=== PATIENT | male | born 1940 | race Caucasian/White ===

== ENCOUNTER → 2018-05-07 13:50 | Outpatient (BNVA) | payer MEDICARE, SELFPAY | PROVIDERS: PCP Nurse Practitioner Adult Health; Visit Provider Nurse Practitioner Adult Health | DX: G56.02 Carpal tunnel syndrome, left upper limb (principal); G62.9 Polyneuropathy, unspecified | CPT/HCPCS: 95910; 99203 ==

== ENCOUNTER → 2018-05-08 07:41 | Outpatient (BNVA) | payer MEDICARE, SELFPAY | PROVIDERS: PCP Nurse Practitioner Adult Health; Visit Provider Psychiatry & Neurology Neurology | DX: G56.01 Carpal tunnel syndrome, right upper limb (principal) | CPT/HCPCS: 95909 ==

== ENCOUNTER 2020-12-12 09:23 | Outpatient (CLI) | payer MEDICARE, SELFPAY ==
[2020-12-12 10:07] LABS: Abs Immature Grans 0.03 10^3/uL (0.0-0.06); Absolute Basophil Count 0.03 10^3/uL (0.0-0.2); Absolute Eosinophil Count 0.06 10^3/uL (0.0-0.7); Absolute Lymphocyte Count 1.24 10^3/uL (1.2-3.4); Absolute Monocyte Count 0.85 10^3/uL (0.1-0.8); Basophils % 0.4; Eosinophils % 0.7; HCT 47.4 % (40.0-50.0); HGB 15.4 g/dL (13.5-17.5); Immature Grans % 0.4; Lymphocytes % 14.6; MCH 31.6 pg (27.0-33.0); MCHC 32.5 % (32.0-36.0); MCV 97.1 fL (80-95); MPV 10.5 fL (8.0-11.0); Neutrophils % 73.9; Nucleated RBC 0 %; Platelet Count 113 10^3/uL (130-400); RBC 4.88 10^6/uL (4.36-5.78); RDW 14.5 % (11.8-14.1); RDW-SD 52.2 fL; WBC 8.51 10^3/uL (4.4-10.8)
[2020-12-12 10:26] LABS: ALT 24 U/L (16-63); AST 19 U/L (15-37); Albumin 3.6 g/dL (3.4-5.0); Alkaline Phosphatase 50 U/L (46-116); Anion Gap 6.1 mmol/L (3-11); BUN 20 mg/dL (7-18); Bilirubin, Total 0.8 mg/dL (0.2-1.0); CO2 31.9 mmol/L (21.0-32.0); CREATININE 1.3 mg/dL (0.70-1.30); Calcium 9.1 mg/dL (8.5-10.1); Chloride 101 mmol/L (98-107); Estimated GFR 53.39 (mL/min/1.73m2); FREE T4 0.99 ng/dL (0.76-1.46); Glucose 156 mg/dL (74-106); Potassium 4.1 mmol/L (3.5-5.1); Sodium 139 mmol/L (136-145); Total Protein 6.7 g/dL (6.4-8.2)
[2020-12-12 17:27] LABS: CEA 1.5 ng/mL (See Note)
== END 2020-12-12 09:24 | disposition home or self-care (01) ==
PROVIDERS: PCP Nurse Practitioner Adult Health; Visit Provider Internal Medicine Medical Oncology
DX: C15.9 Malignant neoplasm of esophagus, unspecified (principal); Z79.899 Other long term (current) drug therapy
CPT/HCPCS: 36415; 80053; 82378; 84439; 84443; 85025

== ENCOUNTER 2020-12-26 10:51 | Outpatient (CLI) | payer MEDICARE, SELFPAY ==
[2020-12-26 11:27] LABS: Abs Immature Grans 0.03 10^3/uL (0.0-0.06); Absolute Basophil Count 0.03 10^3/uL (0.0-0.2); Absolute Eosinophil Count 0.08 10^3/uL (0.0-0.7); Absolute Lymphocyte Count 1.53 10^3/uL (1.2-3.4); Basophils % 0.3; Eosinophils % 0.9; HCT 47.8 % (40.0-50.0); HGB 15.9 g/dL (13.5-17.5); Immature Grans % 0.3; Lymphocytes % 16.9; MCHC 33.3 % (32.0-36.0); MCV 96.2 fL (80-95); Monocytes % 8.8; Neutrophils % 72.8; Nucleated RBC 0 %; Platelet Count 116 10^3/uL (130-400); RBC 4.97 10^6/uL (4.36-5.78); RDW 14.3 % (11.8-14.1); RDW-SD 50.4 fL; WBC 9.07 10^3/uL (4.4-10.8)
[2020-12-26 11:49] LABS: ALT 28 U/L (16-63); AST 18 U/L (15-37); Albumin 3.6 g/dL (3.4-5.0); Alkaline Phosphatase 46 U/L (46-116); Anion Gap 7.7 mmol/L (3-11); BUN 32 mg/dL (7-18); Bilirubin, Total 0.9 mg/dL (0.2-1.0); CO2 30.3 mmol/L (21.0-32.0); CREATININE 1.6 mg/dL (0.70-1.30); Calcium 9.4 mg/dL (8.5-10.1); Chloride 99 mmol/L (98-107); Estimated GFR 42.01 (mL/min/1.73m2); FREE T4 1.09 ng/dL (0.76-1.46); Glucose 194 mg/dL (74-106); Potassium 3.9 mmol/L (3.5-5.1); Sodium 137 mmol/L (136-145); TSH 0.53 uIU/mL (0.36-3.74); Total Protein 6.7 g/dL (6.4-8.2)
[2020-12-26 22:08] LABS: CEA 1.9 ng/mL (See Note)
== END 2020-12-26 10:52 | disposition home or self-care (01) ==
LOC: LBO 10:52
PROVIDERS: PCP Nurse Practitioner Adult Health; Visit Provider Internal Medicine Medical Oncology
DX: C15.9 Malignant neoplasm of esophagus, unspecified (principal); Z79.899 Other long term (current) drug therapy
CPT/HCPCS: 36415; 80053; 82378; 84439; 84443; 85025

== ENCOUNTER 2020-12-31 13:41 | Inpatient (IN) | payer MEDICARE, SELFPAY ==
[2020-12-31] VITALS (60 sets, daily range): BP systolic 84–122; BP diastolic 50–73; PULSE 66–96; RESP 16–18; TEMP 36.6–37.1; O2SAT 84–97
--- NOTE | 2020-12-31 | DI.CT_ITS ---
Exam(s) CT CHEST PE CTA EXAM: CT CHEST PE CTA CLINICAL HISTORY: concern for acute PE. TECHNIQUE: Imaging Protocol: CT angiography of the chest was performed using pulmonary embolus andres col. Multi planar reconstructions were performed. CONTRAST MATERIAL: Intravenous: Omnipaque 350 Contrast volume: 100 cc COMPARISON: CR,XR XR CHEST 1V IN DI DEPT from 12/31/2020 FINDINGS: CHEST: PULMONARY ARTERIES: There are no intraluminal filling defects to suggest acute pulmonary emboli. LUNGS: There are no infiltrates nor evidence of pulmonary infarction.. There are no pleural effusions . MEDIASTINUM: There is no hilar nor mediastinal adenopathy. Visualized thyroid unremarkable. CARDIAC: There is cardiomegaly. Coronary artery calcification.No pericardial effusion. The caliber of the thoracic aorta is within normal limits. There is no significant shift of the interventricular septum. PARTIALLY VISUALIZED UPPERMOST ABDOMEN: Some reflux of contrast is noted into the intrahepatic IVC an d veins. OSSEOUS: No significant osseous lesions.Bilateral shoulder prostheses are noted.. IMPRESSION: 1. No evidence of acute pulmonary emboli. No evidence of pulmonary infarction.No pleural effusions. 2. Mild cardiomegaly. No pericardial effusion 3. Bilateral shoulder prostheses are noted. RADIATION DOSE DELIVERED: 574.46mGy.cm Total DLP DATA REPOSITORY: All CT scans at this facility are submitted to the National Radiology Data Registry (NRDR) Dose Index Registry (DIR) with the [employer] (ACR). RADIATION OPTIMIZATION: All CT scans at this facility use at least one of these dose optimization te chniques: automated exposure control; mA and/or kV adjustment per patient size (includes targeted exa ms where dose is matched to clinical indication); or iterative reconstruction.
--- NOTE | 2020-12-31 13:49 | ED.GENADUL_ITS ---
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 Current chemotherapy is meant to be palliative however after speaking with patient, his family, he is a full code. Between sometime last night and this morning there has been a change in his overall mental status. He typically lives at home alone, ambulates with a walker, but is now overly confused. Patient has no acute concerns or complaints. Given his age with multiple comorbidities, will obtain a cardiac work-up, head CT, TSH, chest x-ray, give IV fluid maintenance therapy of 125 an hour, and urinalysis. Will obtain ammonia given his mets to the liver. We will also obtain a Covid swab as I feel as though there is a strong chance he may be admitted. Patient is fully vaccinated against Covid. Patient's xnblmldz-ey-szj is as well who was initially in the room however she left. Now the patient is trying to leave the exam room. The household cook was involved, the patient son who has had 1 Covid vaccine will be allowed to enter the building and stay with his father. Unfortunately right now we do not a CPSO available. Initial laboratory values reveal a white blood cell count of 8.03, hemoglobin 14.3, platelet count 124. INR 1.1. Sodium 139 potassium 3.6 carbon dioxide 33.6 BUN 27, creatinine 1.6, GFR 42.01, glucose 113, magnesium 2.4, total bili 1.1, alk phosphatase 40. TSH 0.49. Ammonia, troponin, urinalysis, imaging all pending. Troponin 0.13. Patient continues to deny any chest pain. He will be given a full dose aspirin. Ammonia 41. Urinalysis negative for signs of infection. Awaiting chest x-ray and CT imaging Medical Records Medical records reviewed: Yes I reviewed the patient's medical records. ECG Data Attestation: I personally reviewed and interpreted this ECG (s) as follows: Interpretation: Please see official report by Dr. Hough. Sinus rhythm, v entricular rate of 80. Nonspecific ST changes. No STEMI. Motion artifact <CIELO Acharya - Last Filed: 12/31/20 23:19> Case signed out to me from Julian German PA-C pending repeat troponin and EKG, upon reassessment, I suspect the patient has had a TIA, he has completely resolved mentation at this time and is alert and oriented at time of my evaluation at 16[address] Patient has a negative CT head for acute pathology, took asa today per son He did have an elevated troponin, 0.13 with a negative EKG for acute ischemia or injury, he denies any chest pain or shortness of breath, nausea He has been completely asymptomatic at baseline from 1030 He does have a significant cardiac history and last stent was placed several years ago Again patient has not had chest pain or shortness of breath, he has a normal- appearing EKG for him He had a repeat troponin that went from .13, .16, no significant change Case was discussed with Dr. Trejo, hospitalist and she prefers. Discussed the case with cardiology at [facility] prior to admission for likely TIA Pending cardiology call at [address] Smith, cardiology her states that she did recommend baby aspirin and statin for this patient but would not intervene from a cardiology standpoint given patient's comorbidities and prior evaluation This was relayed to Dr. Trejo, admitting hospitalist and she is agreeable to admitting patient at this time Differential Diagnosis Differential Diagnosis: TIA, CVA, SAH, DE Medical Records Medical records reviewed: Yes I reviewed the patient's medical records. Lab Data Lab results reviewed: Yes I reviewed the patient's lab results. HPI <CIELO Sargent - Last Filed: 01/01/21 08:20> General Mode of arrival: wheelchair . Date/Time Provider Initiated Documentation: 12/31/20 13:49 . Limitations to Documentation: no limitations . Information obtained by: patient and family . HPI Narrative: This is a 80-year-old gentleman, past medical history of coronary artery disease, heparin- induced thrombocytopenia, CKD, hypertension, Fung's esophagitis, chronic back pain, heart failure, former smoker, aortic stenosis, with recent diagnosis of what I am told by his kcrygaix-uc-xdl is stage IV liver cancer. Upon reviewing additional medical records it appears as though this is actually esophagus [facility] emergency department er. Patient has been on oral chemo Xeloda for approximately 2-1/2 weeks. He received a single IV injection of chemotherapy approximately 3 weeks ago, Oxalipltin. Apparently the patient lives at home alone, uses a walker at baseline to ambulate family with him last night and they report he was at baseline. This morning they believe that he was confused, using his remote control as a telephone. Exact time of altered mental status unknown. He apparently was incontinent of urine, they brought him to [facility] this morning where he had a urinalysis that was unremarkable and he was subsequently discharged. I was able to confirm this via the telephone from an RN, Estefania, who works in the ER at [facility]. I spoke with the patient, his nkltnoum-rc-xro, and his son Yousif on the phone. At this time he is a full code. Denies recent illness or trauma. The patient is pleasantly confused, has no acute concerns or complaints. Related Data Home Medications Medication Instructions Recorded Confirmed acetaminophen [Tylenol Extra 2,000 mg PO BID tab-cap 04/14/18 05/07/18 Strength] allopurinol 300 mg PO DAILY tab-cap 04/14/18 12/31/20 aspirin 81 mg PO DAILY tab-cap 04/14/18 12/31/20 atenolol 12.5 mg PO DAILY tab-cap 04/14/18 12/31/20 cholecalciferol (vitamin D3) 2,000 unit PO DAILY 04/14/18 05/07/18 [Vitamin D3] cinnamon bark 1,000 mg PO DAILY 04/14/18 12/31/20 gabapentin 300 mg PO TID tab-cap 04/14/18 12/31/20 glipizide 5 mg PO DAILY tab-cap 04/14/18 05/07/18 omfgffvbgkky-zheq-qzxer acid 1 tab-cap PO DAILY tab-cap 04/14/18 12/31/20 [Centrum Complete Multivit Tab] omeprazole 40 mg PO DAILY tab-cap 04/14/18 12/31/20 rosuvastatin [Crestor] 40 mg PO DAILY tab-cap 04/14/18 12/31/20 betamethasone acet,sod phos 6 mg 12/31/20 [Celestone Soluspan] capecitabine 1,500 mg PO DAILY AM 12/31/20 12/31/20 ezetimibe 10 mg PO DAILY 12/31/20 12/31/20 furosemide 20 mg PO DAILY 12/31/20 12/31/20 ketoconazole applic TOPICAL 12/31/20 meclizine 25 mg PO DAILY AM PRN 12/31/20 12/31/20 hxewvagnodvz-zxmd-qqele acid 1 tab PO DAILY 12/31/20 12/31/20 [Centrum Complete] prochlorperazine maleate 10 mg PO QID PRN 12/31/20 12/31/20 Allergies Allergy/AdvReac Type Severity Reaction Status Date / Time heparin Allergy Unknown Unverified 12/31/20 14:10 simvastatin [From Zocor] Allergy Unknown Unverified 12/31/20 14:10 diclofenac AdvReac Mild DIZZINESS Unverified 12/31/20 14:45 Review of Systems <CIELO Sargent - Last Filed: 01/01/21 08:20> Constitutional Constitutional: Denies fatigue, Denies fever(s) and Denies headache(s) Eyes Eyes: Denies change in vision ENT Ears, Nose, Mouth, and Throat: Denies headache(s) Cardiovascular Cardiovascular: Denies chest pain and Denies dyspnea Respiratory Respiratory: Denies cough and Denies dyspnea Gastrointestinal Gastrointestinal: Denies abdominal pain, Denies nausea and Denies vomiting Genitourinary Genitourinary: Denies dysuria Musculoskeletal Musculoskeletal: Denies back pain Integumentary/Breasts Skin/Breast: Denies rash Neurologic Neurologic: Denies headache(s) Endocrine Endocrine: Denies fatigue Hematologic/Lymphatic Hematologic/Lymphatic: Denies easy bleeding and Denies easy bruising PFSH <CIELO Sargent - Last Filed: 01/01/21 08:20> Medical History (Updated 01/01/21 @ 01:49 by Leonarda Trejo MD) (HFpEF) heart failure with preserved ejection fraction Aortic stenosis, mild Barretts esophagus Carpal tunnel syndrome, right Chronic back pain CKD (chronic kidney disease) stage 3, GFR 30-59 ml/min Coronary artery disease Degenerative spondylolisthesis DJD of both shoulders Esophageal cancer, 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, on oxaliplatin and capecitabine, last treatment 12/20/20 History of DE (myocardial infarction) History of TIA (transient ischemic attack) HIT (heparin-induced thrombocytopenia) Hyperlipidemia Hypertension Lumbar radiculopathy TAYLOR (nonalcoholic steatohepatitis) Nephrolithiasis Obesity Osteoarthritis Peripheral neuropathy Type 2 diabetes mellitus Surgical History (Updated 01/01/21 @ 00:52 by Leonarda Trejo MD) History of esophageal surgery History of heart artery stent History of left knee replacement History of replacement of both shoulder joints History of spinal fusion Family History Brother Prostate cancer Three brothers all Sister Colon cancer Liver cancer Father Lung cancer Other Diabetes Social History Smoking/Tobacco Use Status: Current every day Smokeless tobacco user: chewing tobacco Smoking risk assessment performed?: Yes Substance use type: does not use current occupation: [employer]MER [employer] Exam <CIELO Sargent - Last Filed: 01/01/21 08:20> Const General: cooperative, healthy appearing, comfortable and no acute distress Orientation: alert, awake, oriented to place and confused (To date, recent history) [facility] Head: normal to inspection, normocephalic and atraumatic Ears: hearing grossly normal bilaterally Face and sinus: normal facial exam Mouth: moist mucous membranes abnormal (Slightly dry) Throat: posterior oropharynx normal Eyes General: appearance normal, both eyes and all related structures Conjunctivae: conjunctivae normal Neck Neck: normal visual inspection, full ROM, no meningeal signs, trachea midline, supple and nontender Resp Effort & Inspection: normal respiratory effort and able to speak in complete sentences Auscultation: clear to auscultation bilaterally Cardio Rate: regular rate Rhythm: regular rhythm GI Palpation: soft, not firm, no guarding, no pulsatile masses and nontender Auscultation: normal bowel sounds Back/Spine/Pelvis Back: No back tenderness Skin General skin exam: no rashes or lesions noted Neuro General: patient alert, patient awake, moves all extremities and no focal motor deficits Speech: speech normal Motor: muscle tone normal throughout and strength 5/5 throughout Sensory Exam: no sensory deficits noted Extrem General: normal to inspection, full ROM, capillary refill normal, no pedal edema and no calf tenderness Other: Patient wearing a right hand-wrist brace Psych Appearance: grossly normal Mental Status: mental status grossly normal Sign Out <CIELO Sargent - Last Filed: 01/01/21 08:20> Sign Out Data: Sign Out Comment: Recent diagnosis of esophageal cancer with metastasis to liver. Received 1 chemo infusion and on oral chemo daily. Per family he was normal last night, altered this morning. CT of head, chest x-ray pending. Patient denies any chest pain. Initial troponin 0.13. Given 1 full dose aspirin. EKG not consistent with STEMI. Last updated by Julian German PA at 12/31/20 15:44
--- NOTE | 2020-12-31 14:00 | RT.EKG_ITS ---
APPROVED REPORT Exam: Resting ECG Reason for Exam: [facility] Patient Location: E HR:80 bpm ECG Measurements Heart Rate 80 AXIS OR 161 P 62 QRSd 112 QRS -60 QT 408 T 73 QTc 469 Conclusion Sinus rhythm...normal P axis, V-rate 60- 99 Multiple ventricular premature complexes...V complexes w/ short R-R intervls LAD, consider left anterior fascicular block...axis(240,-40), S>R II III aVF Anteroseptal infarct, old...Q >40mS, V1-V2 ST elevation suggests acute pericarditis...ST >0.10mV, ant/lat/inf significant motion artifact, do not see obvious st elevation or other ischemic findings
--- NOTE | 2020-12-31 14:30 | DI.CT_ITS ---
Exam(s) CT HEAD WO EXAM: CT HEAD WO CLINICAL HISTORY: ams. TECHNIQUE: Imaging Protocol: Axial computed tomography images with coronal and sagittal reformatted images were created and reviewed COMPARISON: No exams were available for comparison FINDINGS: There are no skull fractures nor fluid in the visualized paranasal sinuses. There is no evidence of intracranial hemorrhage, mass effect, or shift of midline structures. There are no extra-axial fluid collections. The ventricles are not enlarged or shifted and there is no blo od within the ventricular system nor within the basal cisterns. Mild periventricular hypodensity consistent with small vessel disease. No obvious acute territorial infarction. The amount of involutional change is consistent with this patient's age. IMPRESSION: No acute intracranial findings on this noninfused CT scan of the brain. RADIATION DOSE DELIVERED: 829.65mGy.cm Total DLP DATA REPOSITORY: All CT scans at this facility are submitted to the National Radiology Data Registry (NRDR) Dose Index Registry (DIR) with the [employer] (ACR). RADIATION OPTIMIZATION: All CT scans at this facility use at least one of these dose optimization te chniques: automated exposure control; mA and/or kV adjustment per patient size (includes targeted exa ms where dose is matched to clinical indication); or iterative reconstruction.
--- NOTE | 2020-12-31 14:36 | DI.RAD_ITS ---
Exam(s) XR CHEST 1V IN DI DEPT EXAM: XR CHEST 1V IN DI DEPT CLINICAL HISTORY: ams. TECHNIQUE: 2D digital imaging was performed. COMPARISON: No exams were available for comparison FINDINGS: Portable AP upright view of the chest reveals mild cardiomegaly. Tortuosity of the descending thoracic aorta is noted. Lungs are clear. No infiltrates nor obvious pleural effusions. No pulmonary edema. No pneumothorax. Bilateral shoulder prostheses are noted. IMPRESSION: No acute pulmonary findings on this single AP portable view of the chest. Cardiomegaly. No pulmonary edema or pleural effusions evident DATA REPOSITORY: RADIATION DOSE DELIVERED: All CT scans at this facility use at least one of these dose optimization techniques: automated exposure control; mA and/or kV adjustment per patient size (includes targeted e xams where dose is matched to clinical indication); or iterative reconstruction.
[2020-12-31 14:55] LABS: Abs Immature Grans 0.03 10^3/uL (0.0-0.06); Absolute Basophil Count 0.02 10^3/uL (0.0-0.2); Absolute Eosinophil Count 0.13 10^3/uL (0.0-0.7); Absolute Monocyte Count 0.71 10^3/uL (0.1-0.8); Absolute Neutrophil Count 5.94 10^3/uL (1.2-6.7); Basophils % 0.2; Eosinophils % 1.6; HCT 42.3 % (40.0-50.0); HGB 14.3 g/dL (13.5-17.5); Immature Grans % 0.4; Lymphocytes % 14.9; MCH 31.9 pg (27.0-33.0); MCHC 33.8 % (32.0-36.0); MCV 94.4 fL (80-95); MPV 10.3 fL (8.0-11.0); Monocytes % 8.8; Neutrophils % 74.1; Nucleated RBC 0 %; Platelet Count 124 10^3/uL (130-400); RBC 4.48 10^6/uL (4.36-5.78); RDW 14.1 % (11.8-14.1); RDW-SD 48.6 fL; WBC 8.03 10^3/uL (4.4-10.8)
[2020-12-31 15:05] LABS: INR 1.1 (0.9-1.1); Prothrombin Time 11.4 sec (9.3-11.0)
[2020-12-31 15:16] LABS: ALT 46 U/L (16-63); AST 32 U/L (15-37); Albumin 3.8 g/dL (3.4-5.0); Alkaline Phosphatase 40 U/L (46-116); Anion Gap 6.4 mmol/L (3-11); BUN 27 mg/dL (7-18); Bilirubin, Total 1.1 mg/dL (0.2-1.0); CO2 33.6 mmol/L (21.0-32.0); CREATININE 1.6 mg/dL (0.70-1.30); Calcium 9.1 mg/dL (8.5-10.1); Chloride 99 mmol/L (98-107); Estimated GFR 42.01 (mL/min/1.73m2); Glucose 113 mg/dL (74-106); Magnesium 2.4 mg/dL (1.8-2.4); Potassium 3.6 mmol/L (3.5-5.1); Sodium 139 mmol/L (136-145); TSH 0.49 uIU/mL (0.36-3.74); Total Protein 6.7 g/dL (6.4-8.2)
--- NOTE | 2020-12-31 15:17 | NUR.NOTE ---
Pt's daughter in law left. Patient has attempted to get out of the bed. Was placed in wheelchair and then attempted to wheel himself out of the room.:
[2020-12-31 15:20] LABS: ETHANOL BLOOD < 3.0 mg/dL (<3)
[2020-12-31 15:21] LABS: Troponin I 0.13 ng/mL (<0.06)
[2020-12-31 15:26] LABS: Bilirubin Negative (Negative); Blood Negative (Negative); Clarity Clear (Clear); Glucose Negative (Negative); Ketones Negative (Negative); Leukocyte Esterase Negative (Negative); Nitrite Negative (Negative); Specific Gravity 1.015 (1.005-1.025); Urobilinogen 0.2 EU/dL (Up TO 0.2)
[2020-12-31 15:30] LABS: Ammonia 41 umol/L (11-32)
[2020-12-31 15:34] LABS: *AMPHETAMINES SCREEN URINE Negative (Negative); *BARBITURATES SCREEN URINE Negative (Negative); *BENZODIAZEPINES SCREEN URINE Negative (Negative); Cannabinoids THC Negative (Negative); Cocaine Screen,Urine Negative (Negative); METHADONE URINE SCREEN Negative (Negative); OPIATES URINE SCREEN Negative (Negative); Tricyclic Antidepressants Negative (Negative)
--- NOTE | 2020-12-31 15:48 | DI.VRAD_ITS ---
PROCEDURE INFORMATION: Exam: CT Head Without Contrast Exam date and time: 12/31/2020 2:39 PM Age: 80 years old Clinical indication: Altered mental status/memory loss TECHNIQUE: Imaging protocol: Computed tomography of the head without contrast. COMPARISON: No relevant prior studies available. FINDINGS: Brain: Wang-white matter differentiation is normal. There is no mass effect or midline shift. There is no intra-axial hemorrhage. There are mild nonspecific patchy foci of periventricular and subcortical white matter hypodensities which could reflect chronic microvascular ischemic disease. The. There is parenchymal volume loss with compensatory dilatation of ventricles, sulci and basilar cisterns. There is no extra-axial fluid collection. Cerebral ventricles: No ventriculomegaly. Bones/joints: Unremarkable. No acute fracture. Paranasal sinuses: Visualized sinuses are unremarkable. No fluid levels. Mastoid air cells: Visualized mastoid air cells are well aerated. Soft tissues: Unremarkable. IMPRESSION: No acute intracranial abnormality. Dictated and Authenticated by: Kyle De La Fuente MD. Ordering:RANDOLPH Jordan MD
--- NOTE | 2020-12-31 15:50 | DI.VRAD_ITS ---
PROCEDURE INFORMATION: Exam: XR Chest Exam date and time: 12/31/2020 2:43 PM Age: 80 years old Clinical indication: Other: AMS TECHNIQUE: Imaging protocol: XR of the chest. Views: 1 view. COMPARISON: No relevant prior studies available. FINDINGS: Lungs: Lungs volumes are low. No focal consolidation. Pleural spaces: Unremarkable. No pleural effusion. No pneumothorax. Heart/Mediastinum: Cardiac silhouette is borderline enlarged. Bones/joints: There is arthroplasty in the bilateral shoulder joints. IMPRESSION: No acute intracranial abnormality. Dictated and Authenticated by: Kyle De La Fuente MD. Ordering:RANDOLPH Jordan MD
[2020-12-31 16:02] LABS: Source Nasal/Nares
[2020-12-31] MEDS: Aspirin 325 MG TAB PO (16:04)
--- NOTE | 2020-12-31 16:26 | NUR.NOTE ---
pt has been getting out of his chair and getting off the bed . his son , who has only had his first covid vaccine, is allowed to sit with himNursing Note:
--- NOTE | 2020-12-31 17:15 | RT.EKG_ITS ---
APPROVED REPORT Exam: Resting ECG Reason for Exam: elevated trop Patient Location: E HR:76 bpm ECG Measurements Heart Rate 76 AXIS HI 164 P 56 QRSd 106 QRS -65 QT 413 T 56 QTc 465 Conclusion Sinus rhythm...normal P axis, V-rate 60- 99 Inferior infarct, old...Q >35mS, II III aVF Anteroseptal infarct, age indeterminate...Q >35mS, T neg, V1-V2
[2020-12-31 18:29] LABS: Troponin I 0.16 ng/mL (<0.06)
[2020-12-31 19:26] LABS: COVID-19 PCR Negative (Negative)
[2020-12-31] MEDS: Omnipaque 350 MG/ML 100 ML BTL IJ (20:33)
[2020-12-31] MEDS: Normal Saline - Diluent 50 ML VIAL IV (20:34)
--- NOTE | 2020-12-31 21:04 | DI.VRAD_ITS ---
PROCEDURE INFORMATION: Exam: CTA Chest With Contrast Exam date and time: 12/31/2020 8:03 PM Age: 80 years old Clinical indication: Screening exam; Other screening; Patient HX: Concern for acute pe TECHNIQUE: Imaging protocol: Computed tomographic angiography of the chest with contrast. 3D rendering (Not supervised by radiologist): MIP and/or 3D reconstructed images were created by the technologist. COMPARISON: CR XR CHEST 1V IN DI DEPT 12/31/2020 3:31 PM FINDINGS: Pulmonary arteries: Normal. No pulmonary emboli. Aorta: There is mild calcification of arch of aorta, descending thoracic aorta. There is heavy calcifications of origin of the celiac trunk and SMA. Aortic root is mildly dilated measuring up to 3.8 cm. Lungs: Lungs volumes are low. There is mild perihilar vascular congestion. There is bibasilar atelectasis. Pleural spaces: No pleural effusion. No pneumothorax Heart: Heart is enlarged with left ventricular hypertrophy. There are heavy calcifications of right main, left anterior descending and to a lesser extent proximal left circumflex artery. There are mild calcifications of aortic valve. Lymph nodes: Unremarkable. No enlarged lymph nodes. Kidneys and ureters: There is right renal cyst. Bones/joints: There are degenerative changes in the thoracic spine, most pronounced at T9-T10 with marked loss of disc height and endplates sclerosis. There is grade 1 anterolisthesis of C7 over T1. There is bilateral shoulder arthroplasty. Soft tissues: Unremarkable. IMPRESSION: 1. No pulmonary embolism or aortic dissection. 2. Cardiomegaly with heavy atherosclerotic disease. 3. No focal consolidation or pleural effusion. 4. Low lungs volume. Dictated and Authenticated by: Kyle De La Fuente MD. Ordering:LESLEY Brower MD
[2020-12-31] MEDS: Rosuvastatin 10 MG TAB 40 MG PO (22:04)
[2020-12-31] MEDS: Lactulose 20 GM/30 ML CUP PO (22:05)
[2020-12-31] MEDS: Docusate Sodium 100 MG CAP PO (22:05)
[2020-12-31] MEDS: Normal Saline Flush 10 ML SYR (23:41)
[2020-12-31] MEDS: Normal Saline 1,000 ML 125 ML IV (23:56)
--- NOTE | 2021-01-01 00:32 | HPE_ITS ---
Date of service: 01/01/21 Time of Service: 00:36 Assessment and Plan Assessment and plan (1) NSTEMI (non-ST elevated myocardial infarction): Status: Acute Assessment and plan: with H/o CAD s/p PCI x4. Due to patient's terminal cancer, he is not considered a good candidate for intervention or therapeutic anticoagulation/EWA. He has a h/o HIT. Will continue asa and statin. Monitor on tele. Palliative care consult. (2) Transient neurologic deficit: Status: Resolved Assessment and plan: Possible TIA vs hepatic encephalopathy. Symptoms have resolved. Will treat encephalopathy with lactulose. Continue asa/statin, as above. Neurochecks. Check MRI/MRA, US carotid, echo if the patient continues to request aggressive care on Saturday. Palliative care consult. (3) Encephalopathy acute: Status: Acute Assessment and plan: as above (4) Type 2 diabetes mellitus: Status: Chronic Assessment and plan: Cover with SSI (5) Esophageal cancer, stage IV: Status: Acute Assessment and plan: C/s palliative care (6) DVT prophylaxis: Status: Acute Assessment and plan: TEDs/SCDs. H/o HIT. 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 The patient states that he was all confused since the moment that he woke up this morning. By confused, he means he did not know what was happening and what people were telling him. His family took him to the [facility] ED where he was checked for a UTI (negative) and discharged home. On the drive back, he kept grabbing his seat belt and repeating the word right. The patient now admits that he was having chest pain in the center and the right side of his chest. This lasted for 15-20 minutes and resolved by the time of presentation to the ED. Here, his workup was significant for an elevated troponin (0.13 to 0.16) without ischemic changes on the EKG. CT head was negative. Ammonia was elevated. Cardiology at [facility] recommended continuing his aspirin and statin for his NSTEMI and did not feel that he would be a candidate for intervention, given his stage IV esophageal cancer. Hospitalist admission was requested. The patient is full code at this time but we spoke about how CPR/intubation would not reverse his inevitable from his terminal cancer. He will think about his code status and is willing to speak with palliatiev care. Review of Systems Narrative: Reports chronic numbness and tingling in his BUEs, R>L, as well as intermittent tingling in his bilateral feet Denies any weakness in in his limbs. All systems reviewed & are unremarkable except as noted in HPI and below [facility] Medical History (Updated 01/01/21 @ 01:49 by Leonarda Trejo MD) (HFpEF) heart failure with preserved ejection fraction Aortic stenosis, mild Barretts esophagus Carpal tunnel syndrome, right Chronic back pain CKD (chronic kidney disease) stage 3, GFR 30-59 ml/min Coronary artery disease Degenerative spondylolisthesis DJD of both shoulders Esophageal cancer, 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, on oxaliplatin and capecitabine, last treatment 12/20/20 History of AL (myocardial infarction) History of TIA (transient ischemic attack) HIT (heparin-induced thrombocytopenia) Hyperlipidemia Hypertension Lumbar radiculopathy TAYLOR (nonalcoholic steatohepatitis) Nephrolithiasis Obesity Osteoarthritis Peripheral neuropathy Type 2 diabetes mellitus Surgical History (Updated 01/01/21 @ 00:52 by Leonarda Trejo MD) History of esophageal surgery History of heart artery stent History of left knee replacement History of replacement of both shoulder joints History of spinal fusion Family History Brother Prostate cancer Three brothers all Sister Colon cancer Liver cancer Father Lung cancer Other Diabetes Social History Smoking/Tobacco Use Status: Current every day Smokeless tobacco user: chewing tobacco Smoking risk assessment performed?: Yes Substance use type: does not use current occupation: [employer] Meds Allergies and Home Medications Allergies Allergy/AdvReac Type Severity Reaction Status Date / Time heparin Allergy Unknown Unverified 12/31/20 14:10 simvastatin [From Zocor] Allergy Unknown Unverified 12/31/20 14:10 diclofenac AdvReac Mild DIZZINESS Unverified 12/31/20 14:45 Home Medications Medication Instructions Recorded Confirmed Type acetaminophen [Tylenol Extra 2,000 mg PO BID tab-cap 04/14/18 05/07/18 History Strength] allopurinol 300 mg PO DAILY tab-cap 04/14/18 12/31/20 History aspirin 81 mg PO DAILY tab-cap 04/14/18 12/31/20 History atenolol 12.5 mg PO DAILY tab-cap 04/14/18 12/31/20 History cholecalciferol (vitamin D3) 2,000 unit PO DAILY 04/14/18 05/07/18 History [Vitamin D3] cinnamon bark 1,000 mg PO DAILY 04/14/18 12/31/20 History gabapentin 300 mg PO TID tab-cap 04/14/18 12/31/20 History glipizide 5 mg PO DAILY tab-cap 04/14/18 05/07/18 History uwxokzxpoxck-bzmc-pmtlb acid 1 tab-cap PO DAILY tab-cap 04/14/18 12/31/20 History [Centrum Complete Multivit Tab] omeprazole 40 mg PO DAILY tab-cap 04/14/18 12/31/20 History rosuvastatin [Crestor] 40 mg PO DAILY tab-cap 04/14/18 12/31/20 History betamethasone acet,sod phos 6 mg 12/31/20 History [Celestone Soluspan] capecitabine 1,500 mg PO DAILY AM 12/31/20 12/31/20 History ezetimibe 10 mg PO DAILY 12/31/20 12/31/20 History furosemide 20 mg PO DAILY 12/31/20 12/31/20 History ketoconazole applic TOPICAL 12/31/20 History meclizine 25 mg PO DAILY AM PRN 12/31/20 12/31/20 History benwojuesedl-myoc-tlhvn acid 1 tab PO DAILY 12/31/20 12/31/20 History [Centrum Complete] prochlorperazine maleate 10 mg PO QID PRN 12/31/20 12/31/20 History Exam Narrative Exam Narrative: General: Pleasant obese male who is asleep, wakes up easily, A&Ox3, knows who the president is, following commands and is completely appropriate Neurological: A&Ox3, CN II - XII intact, 5/5 strength throughout, numb in distal BUEs and mildly in B feet, no focal deficits Psychiatric: Appropriate speech pattern/content Skin: Visible skin intact HEENT: Atraumatic, normocephalic, EOMI, MMM, Clear oropharynx, no submandibular or cervical lymphadenopathy, no goiter or JVD, large neck diameter Cardiovascular: RRR, quiet KEVEN Lungs: CTAB Gastrointestinal: soft, nontender, nondistended Genitourinary: deferred Extremities: trace edema BLE's Results Imaging Additional studies: CT head w/o contrast: No acute intracranial findings on this noninfused CT scan of the brain. CXR: No acute pulmonary findings on this single AP portable view of the chest. Cardiomegaly.? No pulmonary edema or pleural effusions evident CTA chest: 1. No pulmonary embolism or aortic dissection. 2. Cardiomegaly with heavy atherosclerotic disease. 3. No focal consolidation or pleural effusion. 4. Low lungs volume. EKG #1: NSR, PVCs, HR 80, early repolarization, no acute ischemia EKG #2: unchanged, HR 76 Labs Result diagrams: 12/31/20 14:45 12/31/20 14:45 Labs: Laboratory Results - last 24 hr 12/31/20 12/31/20 12/31/20 14:45 14:45 14:45 WBC 8.03 RBC 4.48 Hgb 14.3 Hct 42.3 MCV 94.4 MCH 31.9 MCHC 33.8 RDW 14.1 Plt Count 124 L MPV 10.3 Immature Gran % 0.4 Neutrophils % 74.1 Lymphocytes % 14.9 Monocytes % 8.8 Eosinophils % 1.6 Basophils % 0.2 Nucleated RBC % 0 Absolute Neutrophils 5.94 Absolute Lymphocytes 1.20 Absolute Monocytes 0.71 Absolute Eosinophils 0.13 Absolute Basophils 0.02 PT 11.4 H INR 1.1 Sodium 139 Potassium 3.6 Chloride 99 Carbon Dioxide 33.6 H Anion Gap 6.4 BUN 27 H Creatinine 1.6 H Estimated GFR/1.73 m2 42.01 Glucose 113 H Calcium 9.1 Magnesium 2.4 Total Bilirubin 1.1 H AST 32 ALT 46 Alkaline Phosphatase 40 L Ammonia Troponin I 0.13 H* Total Protein 6.7 Albumin 3.8 TSH 0.49 Urine Color Urine Clarity Urine pH Ur Specific [place] Urine Protein Urine Ketones Urine Blood Urine Nitrite Urine Bilirubin Urine Urobilinogen Ur Leukocyte Esterase Urine Glucose Urine Opiates Screen Urine Methadone Screen Ur Barbiturates Screen Ur Tricyclics Screen Ur Amphetamines Screen U Benzodiazepines Scrn Urine Cocaine Screen Ur THC Screen Ethyl Alcohol < 3.0 COVID-19 Source SARS-CoV-2 (PCR) 12/31/20 12/31/20 12/31/20 15:00 15:00 15:05 WBC RBC Hgb Hct MCV MCH MCHC RDW Plt Count MPV Immature Gran % Neutrophils % Lymphocytes % Monocytes % Eosinophils % Basophils % Nucleated RBC % Absolute Neutrophils Absolute Lymphocytes Absolute Monocytes Absolute Eosinophils Absolute Basophils PT INR Sodium Potassium Chloride Carbon Dioxide Anion Gap BUN Creatinine Estimated GFR/1.73 m2 Glucose Calcium Magnesium Total Bilirubin AST ALT Alkaline Phosphatase Ammonia 41 H Troponin I Total Protein Albumin TSH Urine Color Yellow Urine Clarity Clear Urine pH 7.0 Ur Specific [place] 1.015 Urine Protein Negative Urine Ketones Negative Urine Blood Negative Urine Nitrite Negative Urine Bilirubin Negative Urine Urobilinogen 0.2 Ur Leukocyte Esterase Negative Urine Glucose Negative Urine Opiates Screen Negative Urine Methadone Screen Negative Ur Barbiturates Screen Negative Ur Tricyclics Screen Negative Ur Amphetamines Screen Negative U Benzodiazepines Scrn Negative Urine Cocaine Screen Negative Ur THC Screen Negative Ethyl Alcohol COVID-19 Source SARS-CoV-2 (PCR) 12/31/20 12/31/20 15:55 17:40 WBC RBC Hgb Hct MCV MCH MCHC RDW Plt Count MPV Immature Gran % Neutrophils % Lymphocytes % Monocytes % Eosinophils % Basophils % Nucleated RBC % Absolute Neutrophils Absolute Lymphocytes Absolute Monocytes Absolute Eosinophils Absolute Basophils PT INR Sodium Potassium Chloride Carbon Dioxide Anion Gap BUN Creatinine Estimated GFR/1.73 m2 Glucose Calcium Magnesium Total Bilirubin AST ALT Alkaline Phosphatase Ammonia Troponin I 0.16 H* Total Protein Albumin TSH Urine Color Urine Clarity Urine pH Ur Specific [place] Urine Protein Urine Ketones Urine Blood Urine Nitrite Urine Bilirubin Urine Urobilinogen Ur Leukocyte Esterase Urine Glucose Urine Opiates Screen Urine Methadone Screen Ur Barbiturates Screen Ur Tricyclics Screen Ur Amphetamines Screen U Benzodiazepines Scrn Urine Cocaine Screen Ur THC Screen Ethyl Alcohol COVID-19 Source Nasal/nares SARS-CoV-2 (PCR) Negative Last Vital Signs Temp 36.6 C 12/31/20 22:11 Pulse 70 12/31/20 23:03 Resp 18 12/31/20 22:11 BP 122/73 12/31/20 22:11 Pulse Ox 95 12/31/20 22:11 COVID-19 Screening Have you, or household traveled for leisure in last 14 days?: No Had IN PERSON contact w/suspected or confirmed C-19 person: No
[2021-01-01 02:04] VITALS: BP 109/65; PULSE 74; RESP 18; TEMP 36.8; O2SAT 95
[2021-01-01 07:00] VITALS: PULSE 73
[2021-01-01 07:25] LABS: Abs Immature Grans 0.03 10^3/uL (0.0-0.06); Absolute Basophil Count 0.02 10^3/uL (0.0-0.2); Absolute Eosinophil Count 0.15 10^3/uL (0.0-0.7); Absolute Lymphocyte Count 1.47 10^3/uL (1.2-3.4); Absolute Monocyte Count 0.71 10^3/uL (0.1-0.8); Absolute Neutrophil Count 5.11 10^3/uL (1.2-6.7); Basophils % 0.3; HCT 44.8 % (40.0-50.0); HGB 14.7 g/dL (13.5-17.5); Immature Grans % 0.4; Lymphocytes % 19.6; MCH 31.7 pg (27.0-33.0); MCHC 32.8 % (32.0-36.0); MCV 96.6 fL (80-95); MPV 10.2 fL (8.0-11.0); Monocytes % 9.5; Neutrophils % 68.2; Nucleated RBC 0 %; Platelet Count 128 10^3/uL (130-400); RBC 4.64 10^6/uL (4.36-5.78); RDW 14.3 % (11.8-14.1); WBC 7.49 10^3/uL (4.4-10.8)
[2021-01-01 07:51] LABS: Anion Gap 6.2 mmol/L (3-11); BUN 25 mg/dL (7-18); CO2 32.8 mmol/L (21.0-32.0); CREATININE 1.4 mg/dL (0.70-1.30); Chloride 101 mmol/L (98-107); Estimated GFR 49.01 (mL/min/1.73m2); Glucose 144 mg/dL (74-106); Magnesium 2.5 mg/dL (1.8-2.4); Potassium 3.5 mmol/L (3.5-5.1); Sodium 140 mmol/L (136-145)
[2021-01-01 07:53] LABS: Troponin I 0.21 ng/mL (<0.06)
[2021-01-01 07:54] VITALS: BP 115/68; PULSE 69; RESP 18; TEMP 36.3; O2SAT 97
[2021-01-01 08:06] LABS: Calculated LDL 7 mg/dL (<100); Cholesterol 66 mg/dL (<200); HDL Cholesterol 28 mg/dL (40-60); Triglyceride 157 mg/dL (<150)
[2021-01-01] MEDS: Omeprazole 20 MG CAPCR 40 MG PO (08:34)
[2021-01-01] MEDS: Aspirin 81 MG CHEW PO (08:34)
[2021-01-01] MEDS: Allopurinol 300 MG TAB PO (08:34)
[2021-01-01] MEDS: Multivitamin w/Minerals TAB 1 TAB PO (08:34)
[2021-01-01] MEDS: Ezetimibe 10 MG TAB PO (08:34)
[2021-01-01] MEDS: Cholecalciferol (Vitamin D3) 1,000 UNIT TAB 2000 UNITS PO (08:34)
[2021-01-01] MEDS: Atenolol 25 MG TAB 12.5 MG PO (08:35)
[2021-01-01] MEDS: Lactulose 20 GM/30 ML CUP PO (08:35)
[2021-01-01] MEDS: Gabapentin 300 MG CAP PO (08:35)
[2021-01-01] MEDS: Insulin Aspart 300 UNITS/3 ML PEN SC (08:36)
[2021-01-01 09:51] VITALS: PULSE 146
[2021-01-01 09:57] VITALS: BP 112/72; PULSE 71; RESP 18; O2SAT 97
[2021-01-01 11:18] VITALS: BP 109/67; PULSE 60; RESP 18; TEMP 36.7; O2SAT 96
--- NOTE | 2021-01-01 13:27 | DSE_ITS ---
Date of service: 01/01/21 Time of Service: 13:27 DS: Diagnosis Discharge Diagnosis (1) NSTEMI (non-ST elevated myocardial infarction): Start date: 01/01/21 Start time: 13:27 Status: Acute Asessment and Plan: with H/o CAD s/p PCI x4. Due to patient's terminal cancer, he is not considered a good candidate for intervention or therapeutic anticoagulation/EWA. He has a h/o HIT. he has decided due to his circumstances that he wants to go on hospice. He would like to go home today and have hospice meet him at his house tomorrow. He has family that will be with him for support. Hospice consult placed. Will discharge home with medication for pain management anxiety and defer to hospice for further management of medication and equipment. COLST form filled out. (2) Transient neurologic deficit: Start date: 01/01/21 Start time: 13:29 Status: Resolved Asessment and Plan: Likely TIA vs encephalopathy given resolution of sym ptoms so quickly. He is now at baseline. As above. (3) Encephalopathy acute: Start date: 01/01/21 Start time: 13:30 Status: Resolved Asessment and Plan: as above (4) Type 2 diabetes mellitus: Start date: 01/01/21 Start time: 13:54 Status: Chronic Asessment and Plan: As patient is going on hospice he will be able to live as he wants. he can eat what he wants. (5) Esophageal cancer, stage IV: Start date: 01/01/21 Start time: 13:56 Status: Acute Asessment and Plan: going home on hospice discussed with Dr. 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 His family took him to the [facility] ED where he was checked for a UTI (negative) and discharged home. On the drive back, he kept grabbing his seat belt and repeating the word right. The patient now admits that he was having chest pain in the center and the right side of his chest. This lasted for 15-20 minutes and resolved by the time of presentation to the ED. Here, his workup was significant for an elevated troponin (0.13 to 0.16) without ischemic changes on the EKG. CT head was negative. Ammonia was elevated. Cardiology at [facility] [place] recommended continuing his aspirin and statin for his NSTEMI and did not feel that he would be a candidate for intervention, given his stage IV esophageal cancer. He also is not a candidate for heparin due to h/o HIT. Today I spoke with patient about his prognosis and medical condition. He is realistic to the fact he is going to . He agreed that he wanted to be made comfort measures and go home on hospice. Family was present, after speaking with CM and family patient decided he would like to be discharged home and have hospice meet him at home. We spoke about what restrictions he would have. Being on hospice he would have none. He asked if he had to take any medication, I explained only if he wanted to for comfort e.g. he had leg swelling that was uncomfortable and he wanted to take lasix. He asked if he had to stick to a certain diet, i informed him that he could eat what he wanted otherwise being on comfort and hospice meant that he could live his life the way he wanted to. He was pleased with this and said several times I know I am going to and I am ok with that, but I when I . COLST form filled out. He was changed to DNR/DNI, he would take antibiotics for comfort only and did not want transfer to hospital. He is being discharged home on pain medication and ativan for comfort. Will defer to hospice for further med management and equipment management. At this time he denies pain. Home Meds and New Rx's Prescriptions: New morphine 10 mg/5 mL solution 5 mg PO Q4H PRNQty: 100 RF: 0 lorazepam [Ativan] 1 mg tablet 1 mg PO QID Qty: 20 RF: 0 No Action atenolol 25 MG tablet 12.5 mg PO DAILY RF: 0 aspirin 81 MG tablet,chewable 81 mg PO DAILY RF: 0 allopurinol 300 MG tablet 300 mg PO DAILY RF: 0 acetaminophen [Tylenol Extra Strength] 500 MG tablet 2,000 mg PO BID RF: 0 glipizide 2.5 MG tablet extended release 24hr 5 mg PO DAILY RF: 0 gabapentin 300 MG capsule 300 mg PO TID RF: 0 omeprazole 20 MG capsule,delayed release(DR/EC) 40 mg PO DAILY RF: 0 rosuvastatin [Crestor] 40 MG tablet 40 mg PO DAILY RF: 0 cinnamon bark 500 MG capsule 1,000 mg PO DAILY RF: 0 cholecalciferol (vitamin D3) [Vitamin D3] 2,000 UNIT tablet 2,000 unit PO DAILY RF: 0 Centrum Complete 1 EACH tablet 1 tab-cap PO DAILY RF: 0 betamethasone acet,sod phos [Celestone Soluspan] 6 mg/mL Suspension 6 mg RF: 0 Centrum Complete 18-400 mg-mcg Tablet 1 tab PO DAILY RF: 0 ezetimibe 10 mg Tablet 10 mg PO DAILY RF: 0 furosemide 20 mg Tablet 20 mg PO DAILY RF: 0 ketoconazole 2 % Cream TOPICAL RF: 0 capecitabine 500 mg Tablet 1,500 mg PO DAILY AM RF: 0 prochlorperazine maleate 10 mg Tablet 10 mg PO QID PRNRF: 0 meclizine 25 mg Capsule 25 mg PO DAILY AM PRNRF: 0 Discharge Instructions Instructions: Heart Attack (DC), Hospice Care (GEN) Additional Instructions: Hospice will meet you at home You can eat what you like no restrictions Take medications for comfort as you want Defer to hospice for further management of equipment and management. Activity:: Activity as Tolerated Equipment/Supplies:: No Equipment Needed Diet:: As Tolerated Discharge Orders Discharge Orders: Discharge Order (Routine); Ordered 01/01/21 Ordered By: Monica Mix DS: Summary Time Spent with Patient providing and/or coordinating discharge services: Greater than 30 minutes Status at Discharge Functional status at discharge: uses cane/walker Overall status at discharge: patient is not back to baseline Mental Status: mental status grossly normal Speech and Movement: speech and movement normal Mood: congruent mood Affect: normal affect Exam Narrative Exam Narrative: General: Pleasant obese male who is asleep, wakes up easily, A&Ox3, knows who the president is, following commands and is completely appropriate Neurological: A&Ox3, CN II - XII intact, 5/5 strength throughout, numb in distal BUEs and mildly in B feet, no focal deficits Psychiatric: Appropriate speech pattern/content Skin: Visible skin intact HEENT: Atraumatic, normocephalic, EOMI, MMM, Clear oropharynx, no submandibular or cervical lymphadenopathy, no goiter or JVD, large neck diameter Cardiovascular: RRR, quiet KEVEN Lungs: CTAB Gastrointestinal: soft, nontender, nondistended Genitourinary: deferred Extremities: trace edema BLE's Psych Mental Status: mental status grossly normal Speech and Movement: speech and movement normal Mood: congruent mood Affect: normal affect DS: Data Vitals/I&O Vitals and I&O: Vital Signs Temperature 36.7 C 01/01/21 11:18 Temperature Source Temporal Artery Scan 01/01/21 11:18 Pulse 60 01/01/21 11:18 Pulse Rhythm Regular 12/31/20 23:20 Pulse 70 12/31/20 20:10 Respiratory Rate 18 01/01/21 11:18 Respiratory Effort Non-Labored 12/31/20 23:20 Respiratory Depth Normal 12/31/20 23:20 Respiratory Pattern Normal 12/31/20 23:20 Blood Pressure 109/67 01/01/21 11:18 Blood Pressure Mean 61 12/31/20 20:02 Blood Pressure Position Supine 12/31/20 13:52 Pulse Oximetry 96 01/01/21 11:18 Oxygen Delivery Method Room Air 01/01/21 11:18 Oxygen Flow Rate 0 01/01/21 11:18 Pain Level 0 01/01/21 11:18 Comment 01/01/21 09:57 Intake & Output 12/31/20 01/01/21 01/01/21 23:59 11:59 23:59 Intake Total 240 / 240 231.25 / 231.25 Output Total 1500 / 1500 Balance -1260 / -1260 231.25 / 231.25 Weight 89.2 kg Intake: IV 231.25 / 231.25 Oral 240 / 240 Output: Urine 1500 / 1500 Other: Urine Color Light Gertrude Yellow Urine Appearance Clear Clear Urine Odor Normal Comment pT urinated in toilet unable to see color or appearance Stool Size Moderate Stool Characteristics Soft Formed Brown Voiding Methods Urinal Toilet Data Completed and Pending Completed studies during hospitalization [Text1]: Exam(s) a CT:CT head wo Exam(s) CT HEAD WO EXAM: ? CT HEAD WO CLINICAL HISTORY: ? ams. ? TECHNIQUE:? Imaging Protocol: Axial computed tomography images with coronal and sagittal reformatted images were created and reviewed COMPARISON:? No exams were available for comparison FINDINGS: ?There are no skull fractures nor fluid in the visualized paranasal sinuses. There is no evidence of intracranial hemorrhage, mass effect, or shift of midline structures.? There are no extra-axial fluid collections.? The ventricles are not enlarged or shifted and there is no blood within the ventricular system nor within the basal cisterns. Mild periventricular hypodensity consistent with small vessel disease.? No obvious acute territorial infarction.? The amount of involutional change is consistent with this patient's age. IMPRESSION: No acute intracranial findings on this noninfused CT scan of the brain. COMPARISON:? No exams were available for comparison FINDINGS: Portable AP upright view of the chest reveals mild cardiomegaly. Tortuosity of the descending thoracic aorta is noted. Lungs are clear.? No infiltrates nor obvious pleural effusions. No pulmonary edema.? No pneumothorax.? Bilateral shoulder prostheses are noted. IMPRESSION: No acute pulmonary findings on this single AP portable view of the chest. Cardiomegaly.? No pulmonary edema or pleural effusions evident : 1940 Age: 80 ? Exam(s) PROCEDURE INFORMATION: Exam: CT Head Without Contrast Exam date and time: 12/31/2020 2:39 PM Age: 80 years old Clinical indication: Altered mental status/memory loss TECHNIQUE: Imaging protocol: Computed tomography of the head without contrast. COMPARISON: No relevant prior studies available. FINDINGS: Brain: Wang-white matter differentiation is normal. There is no mass effect or midline shift. There is no intra-axial hemorrhage. There are mild nonspecific patchy foci of periventricular and subcortical white matter hypodensities which could reflect chronic microvascular ischemic disease. The. There is parenchymal volume loss with compensatory dilatation of ventricles, sulci and basilar cisterns. There is no extra-axial fluid collection. Cerebral ventricles: No ventriculomegaly. Bones/joints: Unremarkable. No acute fracture. Paranasal sinuses: Visualized sinuses are unremarkable. No fluid levels. Mastoid air cells: Visualized mastoid air cells are well aerated. Soft tissues: Unremarkable. IMPRESSION: No acute intracranial abnormality. Exam(s) PROCEDURE INFORMATION: Exam: XR Chest Exam date and time: 12/31/2020 2:43 PM Age: 80 years old Clinical indication: Other: AMS TECHNIQUE: Imaging protocol: XR of the chest. Views: 1 view. COMPARISON: No relevant prior studies available. FINDINGS: Lungs: Lungs volumes are low. No focal consolidation. Pleural spaces: Unremarkable. No pleural effusion. No pneumothorax. Heart/Mediastinum: Cardiac silhouette is borderline enlarged. Bones/joints: There is arthroplasty in the bilateral shoulder joints. IMPRESSION: No acute intracranial abnormality. : 1940 Age: 80 ? Exam(s) PROCEDURE INFORMATION: Exam: CTA Chest With Contrast Exam date and time: 12/31/2020 8:03 PM Age: 80 years old Clinical indication: Screening exam; Other screening; Patient HX: Concern for acute pe TECHNIQUE: Imaging protocol: Computed tomographic angiography of the chest with contrast. 3D rendering (Not supervised by radiologist): MIP and/or 3D reconstructed images were created by the technologist. COMPARISON: CR XR CHEST 1V IN DI DEPT 12/31/2020 3:31 PM FINDINGS: Pulmonary arteries: Normal. No pulmonary emboli. Aorta: There is mild calcification of arch of aorta, descending thoracic aorta. There is heavy calcifications of origin of the celiac trunk and SMA. Aortic root is mildly dilated measuring up to 3.8 cm. Lungs: Lungs volumes are low. There is mild perihilar vascular congestion. There is bibasilar atelectasis. Pleural spaces: No pleural effusion.? No pneumothorax Heart: Heart is enlarged with left ventricular hypertrophy. There are heavy calcifications of right main, left anterior descending and to a lesser extent proximal left circumflex artery. There are mild calcifications of aortic valve. Lymph nodes: Unremarkable. No enlarged lymph nodes. Kidneys and ureters: There is right renal cyst. Bones/joints: There are degenerative changes in the thoracic spine, most pronounced at T9-T10 with marked loss of disc height and endplates sclerosis. There is grade 1 anterolisthesis of C7 over T1. There is bilateral shoulder arthroplasty. Soft tissues: Unremarkable. IMPRESSION: 1. No pulmonary embolism or aortic dissection. 2. Cardiomegaly with heavy atherosclerotic disease. 3. No focal consolidation or pleural effusion. 4. Low lungs volume. Labs on day of discharge: Labs from last 24 hours 01/01/21 01/01/21 12/31/20 06:45 06:45 17:40 WBC 7.49 RBC 4.64 Hgb 14.7 Hct 44.8 MCV 96.6 H MCH 31.7 MCHC 32.8 RDW 14.3 H Plt Count 128 L MPV 10.2 Immature Gran % 0.4 Neutrophils % 68.2 Lymphocytes % 19.6 Monocytes % 9.5 Eosinophils % 2.0 Basophils % 0.3 Nucleated RBC % 0 Absolute Neutrophils 5.11 Absolute Lymphocytes 1.47 Absolute Monocytes 0.71 Absolute Eosinophils 0.15 Absolute Basophils 0.02 PT INR Sodium 140 Potassium 3.5 Chloride 101 Carbon Dioxide 32.8 H Anion Gap 6.2 BUN 25 H Creatinine 1.4 H Estimated GFR/1.73 m2 49.01 Glucose 144 H Calcium 9.0 Magnesium 2.5 H Total Bilirubin AST ALT Alkaline Phosphatase Ammonia Troponin I 0.21 H* 0.16 H* Total Protein Albumin Triglycerides 157 H Total Cholesterol 66 LDL Cholesterol, Calc 7 HDL Cholesterol 28 L TSH Urine Color Urine Clarity Urine pH Ur Specific [place] Urine Protein Urine Ketones Urine Blood Urine Nitrite Urine Bilirubin Urine Urobilinogen Ur Leukocyte Esterase Urine Glucose Urine Opiates Screen Urine Methadone Screen Ur Barbiturates Screen Ur Tricyclics Screen Ur Amphetamines Screen U Benzodiazepines Scrn Urine Cocaine Screen Ur THC Screen Ethyl Alcohol COVID-19 Source SARS-CoV-2 (PCR) 12/31/20 12/31/20 12/31/20 15:55 15:05 15:00 WBC RBC Hgb Hct MCV MCH MCHC RDW Plt Count MPV Immature Gran % Neutrophils % Lymphocytes % Monocytes % Eosinophils % Basophils % Nucleated RBC % Absolute Neutrophils Absolute Lymphocytes Absolute Monocytes Absolute Eosinophils Absolute Basophils PT INR Sodium Potassium Chloride Carbon Dioxide Anion Gap BUN Creatinine Estimated GFR/1.73 m2 Glucose Calcium Magnesium Total Bilirubin AST ALT Alkaline Phosphatase Ammonia 41 H Troponin I Total Protein Albumin Triglycerides Total Cholesterol LDL Cholesterol, Calc HDL Cholesterol TSH Urine Color Yellow Urine Clarity Clear Urine pH 7.0 Ur Specific [place] 1.015 Urine Protein Negative Urine Ketones Negative Urine Blood Negative Urine Nitrite Negative Urine Bilirubin Negative Urine Urobilinogen 0.2 Ur Leukocyte Esterase Negative Urine Glucose Negative Urine Opiates Screen Urine Methadone Screen Ur Barbiturates Screen Ur Tricyclics Screen Ur Amphetamines Screen U Benzodiazepines Scrn Urine Cocaine Screen Ur THC Screen Ethyl Alcohol COVID-19 Source Nasal/nares SARS-CoV-2 (PCR) Negative 12/31/20 12/31/20 12/31/20 15:00 14:45 14:45 WBC 8.03 RBC 4.48 Hgb 14.3 Hct 42.3 MCV 94.4 MCH 31.9 MCHC 33.8 RDW 14.1 Plt Count 124 L MPV 10.3 Immature Gran % 0.4 Neutrophils % 74.1 Lymphocytes % 14.9 Monocytes % 8.8 Eosinophils % 1.6 Basophils % 0.2 Nucleated RBC % 0 Absolute Neutrophils 5.94 Absolute Lymphocytes 1.20 Absolute Monocytes 0.71 Absolute Eosinophils 0.13 Absolute Basophils 0.02 PT 11.4 H INR 1.1 Sodium Potassium Chloride Carbon Dioxide Anion Gap BUN Creatinine Estimated GFR/1.73 m2 Glucose Calcium Magnesium Total Bilirubin AST ALT Alkaline Phosphatase Ammonia Troponin I Total Protein Albumin Triglycerides Total Cholesterol LDL Cholesterol, Calc HDL Cholesterol TSH Urine Color Urine Clarity Urine pH Ur Specific [place] Urine Protein Urine Ketones Urine Blood Urine Nitrite Urine Bilirubin Urine Urobilinogen Ur Leukocyte Esterase Urine Glucose Urine Opiates Screen Negative Urine Methadone Screen Negative Ur Barbiturates Screen Negative Ur Tricyclics Screen Negative Ur Amphetamines Screen Negative U Benzodiazepines Scrn Negative Urine Cocaine Screen Negative Ur THC Screen Negative Ethyl Alcohol COVID-19 Source SARS-CoV-2 (PCR) 12/31/20 14:45 WBC RBC Hgb Hct MCV MCH MCHC RDW Plt Count MPV Immature Gran % Neutrophils % Lymphocytes % Monocytes % Eosinophils % Basophils % Nucleated RBC % Absolute Neutrophils Absolute Lymphocytes Absolute Monocytes Absolute Eosinophils Absolute Basophils PT INR Sodium 139 Potassium 3.6 Chloride 99 Carbon Dioxide 33.6 H Anion Gap 6.4 BUN 27 H Creatinine 1.6 H Estimated GFR/1.73 m2 42.01 Glucose 113 H Calcium 9.1 Magnesium 2.4 Total Bilirubin 1.1 H AST 32 ALT 46 Alkaline Phosphatase 40 L Ammonia Troponin I 0.13 H* Total Protein 6.7 Albumin 3.8 Triglycerides Total Cholesterol LDL Cholesterol, Calc HDL Cholesterol TSH 0.49 Urine Color Urine Clarity Urine pH Ur Specific [place] Urine Protein Urine Ketones Urine Blood Urine Nitrite Urine Bilirubin Urine Urobilinogen Ur Leukocyte Esterase Urine Glucose Urine Opiates Screen Urine Methadone Screen Ur Barbiturates Screen Ur Tricyclics Screen Ur Amphetamines Screen U Benzodiazepines Scrn Urine Cocaine Screen Ur THC Screen Ethyl Alcohol < 3.0 COVID-19 Source SARS-CoV-2 (PCR) [facility] Medical History (HFpEF) heart failure with preserved ejection fraction Aortic stenosis, mild Barretts esophagus Carpal tunnel syndrome, right Chronic back pain CKD (chronic kidney disease) stage 3, GFR 30-59 ml/min Coronary artery disease Degenerative spondylolisthesis DJD of both shoulders Esophageal cancer, 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, on oxaliplatin and capecitabine, last treatment 12/20/20 History of NH (myocardial infarction) History of TIA (transient ischemic attack) HIT (heparin-induced thrombocytopenia) Hyperlipidemia Hypertension Lumbar radiculopathy TAYLOR (nonalcoholic steatohepatitis) Nephrolithiasis Obesity Osteoarthritis Peripheral neuropathy Type 2 diabetes mellitus Surgical History History of esophageal surgery History of heart artery stent History of left knee replacement History of replacement of both shoulder joints History of spinal fusion Family History Brother Prostate cancer Three brothers all Sister Colon cancer Liver cancer Father Lung cancer Other Diabetes Social History Smoking/Tobacco Use Status: Current every day Smokeless tobacco user: chewing tobacco Smoking risk assessment performed?: Yes Substance use type: does not use current occupation: [employer]MER [employer], [employer]
--- NOTE | 2021-01-01 18:37 | CMPROGNOTE_ITS ---
- If Service Date Differs Date of service: 01/01/21 Time of Service: 18:37 Care Management Progress Note S/O: Parvez was admitted last night with increasing confusion. He has a recent diagnosis of Stage IV esophageal cancer with metastasis to the liver. Upon admission he was confused but was alert and oriented X3 this morning. After discussion with providers, Parvez decided that he wanted to go home on hospice this afternoon. Family came to visit and Advnaced Directives were completed with , filed with the [facility] and in his medical record. Copies were given to the family. Parvez also signed a COLST form with the provider and this was faxed to [facility] and placed in his chart. A hospice consult has been sent. A: parvez is a 81 year old man admitted with AMS P: Parvez will be discharged home with a plan to initiate hospice in the community. He has strong family support and family members will stay with him. A hospice consult has been ordered. He will follow up with his PCP and [facility] and transport with family.
== END 2021-01-01 15:02 | disposition home or self-care (01) | DRG 281 ==
LOC: ER 20:07 → MS 21:24
PROVIDERS: Physician Assistant; Admitting Provider Internal Medicine; Emergency Provider Physician Assistant; PCP Nurse Practitioner Adult Health; Visit Provider Internal Medicine
DX: I21.4 Non-ST elevation (NSTEMI) myocardial infarction (principal); G45.9 Transient cerebral ischemic attack, unspecified; C15.9 Malignant neoplasm of esophagus, unspecified; C78.7 Secondary malignant neoplasm of liver and intrahepatic bile duct; I50.30 Unspecified diastolic (congestive) heart failure; I13.0 Hypertensive heart and chronic kidney disease with heart failure and stage 1 through stage 4 chronic kidney disease, or unspecified chronic kidney disease; K72.90 Hepatic failure, unspecified without coma; I25.10 Atherosclerotic heart disease of native coronary artery without angina pectoris; Z95.5 Presence of coronary angioplasty implant and graft; Z86.73 Personal history of transient ischemic attack (TIA), and cerebral infarction without residual deficits; E78.5 Hyperlipidemia, unspecified; I35.0 Nonrheumatic aortic (valve) stenosis; K22.70 Barrett's esophagus without dysplasia; G89.29 Other chronic pain; M54.9 Dorsalgia, unspecified; N18.30 Chronic kidney disease, stage 3 unspecified; E11.22 Type 2 diabetes mellitus with diabetic chronic kidney disease; I25.2 Old myocardial infarction; D75.82 Heparin induced thrombocytopenia (HIT); M54.16 Radiculopathy, lumbar region; K75.81 Nonalcoholic steatohepatitis (NASH); N20.0 Calculus of kidney; E66.9 Obesity, unspecified; M19.09 Primary osteoarthritis, other specified site; E11.42 Type 2 diabetes mellitus with diabetic polyneuropathy; F17.220 Nicotine dependence, chewing tobacco, uncomplicated
CPT/HCPCS: 36415; 71275; 80048; 80053; 80061; 80307; 87635; 93005; 99285; 70450; 71045; 80320; 81003; 82140; 83735; 84443; 84484; 85025; 85610; 93010; 99223; 99239; J3490